=== PATIENT | male | born 1955 | race African-American/Black ===

== ENCOUNTER 2023-08-29 11:36 | Inpatient (IN) | payer MEDICARE, MEDICAID ==
[~2023-08-29] VITALS: Ht 180.3 cm; Wt 83.6 kg
[2023-08-29 12:20] VITALS: PULSE 98; RESP 16; O2SAT 95
[2023-08-29] MEDS: LABETALOL HCL 5 MG/ML 4ML SYRINGE IV ONE ×2 (12:26→15:36)
[2023-08-29] MEDS: SODIUM CHLORIDE 0.9% 1,000 ML IV ONE (13:20)
[2023-08-29 13:37] LABS: Basophils # (auto) 0 10 ^3/uL (0-0.2); Eosinophils # (auto) 0 10 ^3/uL (0-0.8); Eosinophils % (auto) 0.5 % (0.0-7.0); Hemoglobin 14.4 g/dL (13.5-17.5); Monocytes # (auto) 0.4 10 ^3/uL (0-1.3)
[2023-08-29 13:39] LABS: Basophils % (auto) 0.3 % (0.0-2.0); Hematocrit 44.2 % (41.0-53.0); Lymphocytes % (auto) 18.8 % (10.0-50.0); Mean Corpuscular Hemoglobin 26.8 pg (28.0-32.0); Mean Corpuscular Hgb Conc. 32.7 g/dL (32.0-36.0); Mean Corpuscular Volume 82.1 fL (80.0-100.0); Monocytes % (auto) 7.3 % (0.0-12.0); Neutrophils % (auto) 73.1 % (37.0-80.0); Red Blood Cells 5.38 10^6/uL (4.5-5.90); Red Cell Distribution Width 14.2 % (11.8-14.3); White Blood Cell 5.4 10^3/uL (4.4-10.8)
[2023-08-29 13:53] LABS: Chloride 108 mmol/L (98-107); Potassium 3.7 mmol/L (3.5-5.1); Sodium 138 mmol/L (136-145)
[2023-08-29 13:54] LABS: Anion Gap 5 (5-15); Calcium 8.9 mg/dL (8.7-10.4); Carbon Dioxide 25 mmol/L (20-30)
[2023-08-29 13:59] LABS: BUN/Creatinine Ratio 8.7 (10.0-20.0); Blood Urea Nitrogen 9 mg/dL (9-23); Glucose 92 mg/dL (74-106)
[2023-08-29] MEDS: HYDROcodone-ACET 5/325MG TAB PO ONE (16:07)
[2023-08-29] MEDS ORDERED: DOCUSATE SOD 100 MG CAP PO PRN (16:45)
[2023-08-29] MEDS ORDERED: ONDANSETRON HCL 4 MG/2 ML VIAL IV PRN (16:45)
[2023-08-29 16:56] LABS: Urine Epithelial Cast None Seen /hpf (<5)
[2023-08-29] MEDS: hydrALAZINE HCL 20 MG/ML VL IV ONE (17:29)
[2023-08-29 17:40] LABS: Urine Bacteria NONE SEEN /hpf (None Seen); Urine Blood Negative /uL (Negative); Urine Clarity Clear (Clear); Urine Color Yellow (Yellow); Urine Mucus FEW (None Seen); Urine Protein, UAD Negative (Negative); Urine WBC 2 /hpf (0 - 3); Urine pH 5.5 (5.0-8.0)
[2023-08-29] MEDS: ENOXAPARIN SOD 40 MG/0.4 ML SYRINGE SC SCH (18:01)
[2023-08-29] MEDS: hydroCHLOROthiazide 25 MG TAB PO ONE (18:02)
[2023-08-29] MEDS: LISINOPRIL 20 MG TAB PO SCH (18:02)
[2023-08-29] MEDS: SODIUM CHLORIDE 0.9% 1,000 ML IV SCH (18:02)
[2023-08-29 18:45] LABS: Amphetamine Screen, Urine Neg (NEGATIVE)
[2023-08-29 18:46] LABS: Barbiturate Scree,Urine Neg (NEGATIVE); Benzodiazephine Screen, Urine Neg (NEGATIVE); Cannabinoid Screen, Urine Neg (NEGATIVE); Cocaine Screen, Urine Neg (NEGATIVE); Opiate Scree,Urine Neg (NEGATIVE); Phencyclidine Screen, Urine Neg (NEGATIVE)
[2023-08-29 19:30] VITALS: PULSE 103; RESP 16; O2SAT 96
[2023-08-29] MEDS: HYDROcodone-ACET 5/325MG TAB PO PRN (21:00)
[2023-08-29] MEDS: QUEtiapine FUMARATE 100 MG TAB PO ONE (23:55)
[2023-08-30] VITALS (7 sets, daily range): BP systolic 106–178; BP diastolic 75–111; PULSE 87–102; RESP 17–20; TEMP 98–99.4; O2SAT 98–100
[2023-08-30 05:10] LABS: Basophils # (auto) 0 10 ^3/uL (0-0.2); Basophils % (auto) 0.3 % (0.0-2.0); Eosinophils # (auto) 0 10 ^3/uL (0-0.8); Eosinophils % (auto) 0.6 % (0.0-7.0); Hematocrit 38.2 % (41.0-53.0); Hemoglobin 12.5 g/dL (13.5-17.5); Lymphocytes # (auto) 1.8 10 ^3/uL (0.4-5.4); Lymphocytes % (auto) 36.8 % (10.0-50.0); Mean Corpuscular Hemoglobin 26.9 pg (28.0-32.0); Mean Corpuscular Hgb Conc. 32.6 g/dL (32.0-36.0); Mean Corpuscular Volume 82.4 fL (80.0-100.0); Monocytes # (auto) 0.6 10 ^3/uL (0-1.3); Monocytes % (auto) 11.9 % (0.0-12.0); Neutrophils # (auto) 2.5 10 ^3/uL (1.6-8.6); Neutrophils % (auto) 50.4 % (37.0-80.0); Nucleated Red Blood Cells % 0.1 %; Red Blood Cells 4.64 10^6/uL (4.5-5.90); White Blood Cell 4.9 10^3/uL (4.4-10.8)
[2023-08-30 05:26] LABS: Alanine Aminotransferase 13 U/L (7-40); Albumin 3.6 g/dL (3.2-4.8); Alkaline Phosphatase 67 U/L (46-116); Anion Gap 7 (5-15); Aspartate Aminotransferase 42 U/L (13-40); BUN/Creatinine Ratio 9.8 (10.0-20.0); Blood Urea Nitrogen 12 mg/dL (9-23); Calcium 8.6 mg/dL (8.5-10.1); Carbon Dioxide 26 mmol/L (20-30); Chloride 108 mmol/L (98-107); Glucose 96 mg/dL (74-106); Potassium 3.3 mmol/L (3.5-5.1); Sodium 141 mmol/L (136-145)
[2023-08-30 05:27] LABS: Bilirubin, Total 0.5 mg/dL (0.2-1.0); Total Protein 5.9 g/dL (5.7-8.2)
[2023-08-30 07:42] LABS: Magnesium 2.1 mg/dL (1.6-2.6)
[2023-08-30 08:07] LABS: RPR Non Reactive (Non Reactive)
[2023-08-30 08:44] LABS: INR 1.06 (0.9-1.15); Prothrombin Time 11.1 sec (9.3-11.8)
[2023-08-30] MEDS: POTASSIUM EFFERVESENT TAB 25 MEQ PO ONE (09:32)
[2023-08-30] MEDS: hydroCHLOROthiazide 25 MG TAB PO SCH (09:34)
[2023-08-30] MEDS: NEOMYCIN-BACITRACIN-POLYM UNITDOSE PKG TOP OINT TOP SCH (09:37)
[2023-08-30] MEDS: ADENOSINE 72 MG in GIVE UN-DILUTED 0 ML IV ONE (11:56)
[2023-08-30] MEDS: MORPHINE SULFATE INJ 2 MG/ml SYRG IV PRN (13:42)
[2023-08-30] MEDS: hydrALAZINE HCL 20 MG/ML VL IV PRN (16:50)
[2023-08-30] MEDS ORDERED: LORazepam 2MG/ML-1ML VIAL IV PRN (23:15)
[2023-08-30] MEDS ORDERED: QUET25TA37 PO (23:43)
[2023-08-31] VITALS (7 sets, daily range): BP systolic 130–174; BP diastolic 92–115; PULSE 82–100; RESP 14–20; TEMP 98–98.6; O2SAT 93–100
[2023-08-31 05:55] LABS: Basophils # (auto) 0 10 ^3/uL (0-0.2); Basophils % (auto) 0.4 % (0.0-2.0); Eosinophils # (auto) 0.1 10 ^3/uL (0-0.8); Lymphocytes # (auto) 1.9 10 ^3/uL (0.4-5.4); Mean Corpuscular Volume 82.2 fL (80.0-100.0); Monocytes # (auto) 0.6 10 ^3/uL (0-1.3); White Blood Cell 4.5 10^3/uL (4.4-10.8)
[2023-08-31 06:00] LABS: Eosinophils % (auto) 1.5 % (0.0-7.0); Hematocrit 42.2 % (41.0-53.0); Mean Corpuscular Hemoglobin 27.2 pg (28.0-32.0); Mean Corpuscular Hgb Conc. 33.1 g/dL (32.0-36.0); Monocytes % (auto) 12.5 % (0.0-12.0); Neutrophils # (auto) 1.9 10 ^3/uL (1.6-8.6); Neutrophils % (auto) 43.6 % (37.0-80.0); Nucleated Red Blood Cells % 0.4 %; Red Blood Cells 5.14 10^6/uL (4.5-5.90); Red Cell Distribution Width 14.2 % (11.8-14.3)
[2023-08-31 06:04] LABS: Anion Gap 6 (5-15); Carbon Dioxide 27 mmol/L (20-30); Chloride 105 mmol/L (98-107); Potassium 3.8 mmol/L (3.5-5.1); Sodium 138 mmol/L (136-145)
[2023-08-31 06:05] LABS: Calcium 9.2 mg/dL (8.5-10.1)
[2023-08-31 06:10] LABS: BUN/Creatinine Ratio 7.6 (10.0-20.0); Blood Urea Nitrogen 8 mg/dL (9-23); Glucose 91 mg/dL (74-106)
[2023-08-31] MEDS: NIFEdipine ER 30 MG TAB PO SCH (09:35)
[2023-09-01] VITALS (7 sets, daily range): BP systolic 145–160; BP diastolic 81–110; PULSE 90–125; RESP 16–20; TEMP 98.3–98.9; O2SAT 94–100
[2023-09-02 05:00] VITALS: BP 122/77; PULSE 98; RESP 19; TEMP 98.1; O2SAT 96
[2023-09-02 08:00] VITALS: PULSE 90
[2023-09-02 09:00] VITALS: BP 123/87; PULSE 93; RESP 20; TEMP 98.5; O2SAT 97
[2023-09-02 13:00] VITALS: BP 139/88; PULSE 75; RESP 20; TEMP 98.4; O2SAT 97
[2023-09-02 20:00] VITALS: PULSE 105; RESP 20; O2SAT 95
[2023-09-02 22:00] VITALS: BP 110/75; PULSE 84; RESP 20; TEMP 98.3; O2SAT 99
[2023-09-03] VITALS (14 sets, daily range): BP systolic 104–133; BP diastolic 74–98; PULSE 77–97; RESP 12–20; TEMP 97.9–98.8; O2SAT 93–100
[2023-09-03 05:27] LABS: Basophils # (auto) 0 10 ^3/uL (0-0.2); Basophils % (auto) 0.4 % (0.0-2.0); Eosinophils # (auto) 0 10 ^3/uL (0-0.8); Eosinophils % (auto) 1.1 % (0.0-7.0); Hematocrit 42.9 % (41.0-53.0); Lymphocytes # (auto) 1.6 10 ^3/uL (0.4-5.4); Lymphocytes % (auto) 46.5 % (10.0-50.0); Mean Corpuscular Hemoglobin 27.1 pg (28.0-32.0); Mean Corpuscular Hgb Conc. 32.7 g/dL (32.0-36.0); Monocytes # (auto) 0.6 10 ^3/uL (0-1.3); Monocytes % (auto) 16.5 % (0.0-12.0); Neutrophils # (auto) 1.2 10 ^3/uL (1.6-8.6); Neutrophils % (auto) 35.5 % (37.0-80.0); Red Blood Cells 5.17 10^6/uL (4.5-5.90); White Blood Cell 3.5 10^3/uL (4.4-10.8)
[2023-09-03 05:40] LABS: Alanine Aminotransferase 14 U/L (7-40); Alkaline Phosphatase 73 U/L (46-116); Anion Gap 4 (5-15); Aspartate Aminotransferase 20 U/L (13-40); Blood Urea Nitrogen 18 mg/dL (9-23); Calcium 8.9 mg/dL (8.7-10.4); Carbon Dioxide 29 mmol/L (20-30); Chloride 104 mmol/L (98-107); Glucose 96 mg/dL (74-106); Potassium 3.9 mmol/L (3.5-5.1); Sodium 137 mmol/L (136-145); Total Protein 6.6 g/dL (5.7-8.2)
[2023-09-03 05:57] LABS: Bilirubin, Total 0.6 mg/dL (0.2-1.0)
[2023-09-03 07:06] LABS: INR 1.04 (0.9-1.15); Partial Thromboplastin Time 28.8 SEC (24.5-34.5); Prothrombin Time 10.9 sec (9.3-11.8)
[2023-09-03] MEDS: IODIXANOL 320MG/ML 100ML BTL IV ONE (15:03)
[2023-09-03] MEDS: LIDOCAINE 2%HCL (LOCAL ANESTH.) INJ 20ML MDV ONE (15:05)
[2023-09-03] MEDS: fentaNYL CITRATE 100 MCG/2 ML VL ONE (15:10)
[2023-09-03] MEDS: VERAPAMIL 2.5MG/ML INJ 2ML VIAL IV ONE (15:10)
[2023-09-03] MEDS: MIDAZOLAM HCL 2MG/2ML 2ml VIAL (1mg/ml) ONE (15:10)
[2023-09-03] MEDS: ANGIOMAX 250 MG VIAL IV ONE (15:11)
[2023-09-03] MEDS: SODIUM CHL 0.9% 0 ML ONE (15:11)
[2023-09-03] MEDS: HEPARIN SODIUM (PORCINE) 5000 UNITS/ML 1ML VIAL ONE (15:11)
[2023-09-04] VITALS (7 sets, daily range): BP systolic 112–150; BP diastolic 70–100; PULSE 85–108; RESP 18–20; TEMP 98.1–98.9; O2SAT 96–99
[2023-09-04] MEDS ORDERED: NIFE1TAB31 PO (12:37)
[2023-09-04] MEDS ORDERED: HYDR25TA5 PO (12:37)
== END 2023-09-04 18:45 | disposition home or self-care (01) | DRG 287 ==
LOC: EDBD 11:36 → ER 11:36 → TELE 16:55 → TELE-WESTW 23:32
PROVIDERS: ADMIT Nurse Practitioner Family; ATTEND Internal Medicine
PROC: 4A023N7 Measurement of Cardiac Sampling and Pressure, Left Heart, Percutaneous Approach (ICD-10-PCS; principal; 2023-09-03)
PROC: B211YZZ Fluoroscopy of Multiple Coronary Arteries using Other Contrast (ICD-10-PCS; 2023-09-03)
PROC: B215YZZ Fluoroscopy of Left Heart using Other Contrast (ICD-10-PCS; 2023-09-03)
DX: I16.1 Hypertensive emergency (principal); R55 Syncope and collapse; S16.1XXA Strain of muscle, fascia and tendon at neck level, initial encounter; S46.911A Strain of unspecified muscle, fascia and tendon at shoulder and upper arm level, right arm, initial encounter; S46.912A Strain of unspecified muscle, fascia and tendon at shoulder and upper arm level, left arm, initial encounter; S01.81XA Laceration without foreign body of other part of head, initial encounter; E87.6 Hypokalemia; E78.5 Hyperlipidemia, unspecified; F17.210 Nicotine dependence, cigarettes, uncomplicated; I10 Essential (primary) hypertension; I73.9 Peripheral vascular disease, unspecified; M25.531 Pain in right wrist; F17.290 Nicotine dependence, other tobacco product, uncomplicated; M79.631 Pain in right forearm; W18.30XA Fall on same level, unspecified, initial encounter; S02.2XXA Fracture of nasal bones, initial encounter for closed fracture; I89.0 Lymphedema, not elsewhere classified; Z79.899 Other long term (current) drug therapy; Z89.511 Acquired absence of right leg below knee; Z89.512 Acquired absence of left leg below knee; Z71.6 Tobacco abuse counseling; Y93.89 Activity, other specified; Y92.89 Other specified places as the place of occurrence of the external cause; Y99.8 Other external cause status
CPT/HCPCS: 36415; 70450; 70486; 71045; 72040; 73030; 73090; 73110; 73130; 78452; 80048; 80053; 80061; 80307; 81001; 83735; 84443; 84484; 85025; 85610; 85730; 86592; 86850; 86900; 86901; 93005; 93017; 93306; 93458; 93886; 95819; 96374; 96376; 99152; 99291; G0378; J0153; J2250; J3490; Q9967

== ENCOUNTER → 2023-09-14 | Outpatient (CLI) | payer MEDICARE, MEDICAID ==
[~2023-09-14] MED LIST: HYDR25TA5 PO; NIFE1TAB31 PO; QUET25TA37 PO
[2023-09-14 10:34] LABS: Basophils # (auto) 0 10 ^3/uL (0-0.2); Basophils % (auto) 0.3 % (0.0-2.0); Hemoglobin 13.8 g/dL (13.5-17.5); Neutrophils # (auto) 2.2 10 ^3/uL (1.6-8.6)
[2023-09-14 10:37] LABS: Eosinophils # (auto) 0 10 ^3/uL (0-0.8); Hematocrit 42.1 % (41.0-53.0); Lymphocytes # (auto) 1.8 10 ^3/uL (0.4-5.4); Lymphocytes % (auto) 40.7 % (10.0-50.0); Mean Corpuscular Hemoglobin 27.2 pg (28.0-32.0); Mean Corpuscular Hgb Conc. 32.8 g/dL (32.0-36.0); Mean Corpuscular Volume 82.8 fL (80.0-100.0); Monocytes # (auto) 0.4 10 ^3/uL (0-1.3); Monocytes % (auto) 9.3 % (0.0-12.0); Neutrophils % (auto) 48.7 % (37.0-80.0); Nucleated Red Blood Cells % 0.2 %; Red Blood Cells 5.09 10^6/uL (4.5-5.90); Red Cell Distribution Width 13.4 % (11.8-14.3); White Blood Cell 4.5 10^3/uL (4.4-10.8)
[2023-09-14 11:01] LABS: Alanine Aminotransferase 17 U/L (7-40); Albumin 4.2 g/dL (3.2-4.8); Alkaline Phosphatase 89 U/L (46-116); Anion Gap 7 (5-15); Aspartate Aminotransferase 22 U/L (13-40); BUN/Creatinine Ratio 10.6 (10.0-20.0); Blood Urea Nitrogen 11 mg/dL (9-23); Calcium 9.3 mg/dL (8.5-10.1); Carbon Dioxide 26 mmol/L (20-30); Chloride 108 mmol/L (98-107); Glucose 94 mg/dL (74-106); Potassium 3.5 mmol/L (3.5-5.1); Prostate Specific Antigen 0.39 ng/mL (0.0-4.0); Sodium 141 mmol/L (136-145); Triglycerides 91 mg/dL (< 150)
[2023-09-14 11:02] LABS: Cholesterol 146 mg/dL (< 200); LDL Cholesterol 94 mg/dL (< 100)
[2023-09-14 11:03] LABS: Bilirubin, Total 0.7 mg/dL (0.2-1.0); HDL Cholesterol 36 mg/dL (40-59); Total Protein 7.1 g/dL (5.7-8.2)
[2023-09-14 11:07] LABS: Free T4 (Free Thyroxine) 0.95 ng/dL (0.89-1.76)
== END | disposition home or self-care (01) ==
LOC: LAB 09:55
PROVIDERS: ATTEND Nurse Practitioner Family
DX: I10 Essential (primary) hypertension (principal); R35.1 Nocturia; F20.9 Schizophrenia, unspecified
CPT/HCPCS: 36415; 80053; 80061; 84153; 84439; 84443; 85025

== ENCOUNTER → 2024-11-03 | Outpatient (CLI) | payer MEDICAID ==
[2024-11-03 12:14] LABS: Basophils # (auto) 0 10 ^3/uL (0-0.2); Eosinophils # (auto) 0.1 10 ^3/uL (0-0.8); Eosinophils % (auto) 2.2 % (0.0-7.0); Mean Corpuscular Hemoglobin 26.8 pg (28.0-32.0); Monocytes # (auto) 0.4 10 ^3/uL (0-1.3); Neutrophils # (auto) 1.4 10 ^3/uL (1.6-8.6); Nucleated Red Blood Cells % 0.1 %
[2024-11-03 12:16] LABS: Hematocrit 43.7 % (41.0-53.0); Hemoglobin 14.1 g/dL (13.5-17.5); Lymphocytes # (auto) 2.1 10 ^3/uL (0.4-5.4); Lymphocytes % (auto) 52.1 % (10.0-50.0); Mean Corpuscular Hgb Conc. 32.4 g/dL (32.0-36.0); Mean Corpuscular Volume 82.6 fL (80.0-100.0); Monocytes % (auto) 10.1 % (0.0-12.0); Neutrophils % (auto) 34.6 % (37.0-80.0); Platelet Count (auto) 207 10^3/uL (140-450); Red Blood Cells 5.28 10^6/uL (4.5-5.90); Red Cell Distribution Width 14.4 % (11.8-14.3)
[2024-11-03 12:40] LABS: Alanine Aminotransferase 14 U/L (7-40); Albumin 4.2 g/dL (3.2-4.8); Alkaline Phosphatase 87 U/L (46-116); Anion Gap 6 (5-15); Aspartate Aminotransferase 20 U/L (13-40); BUN/Creatinine Ratio 10.3 (10.0-20.0); Bilirubin, Total 0.7 mg/dL (0.2-1.0); Blood Urea Nitrogen 11 mg/dL (9-23); Calcium 9.5 mg/dL (8.7-10.4); Carbon Dioxide 29 mmol/L (20-31); Chloride 106 mmol/L (98-107); Cholesterol 156 mg/dL (< 200); Glucose 91 mg/dL (74-106); HDL Cholesterol 41 mg/dL (40-59); LDL Cholesterol 96 mg/dL (< 100); Potassium 3.7 mmol/L (3.5-5.1); Sodium 141 mmol/L (136-145); Triglycerides 103 mg/dL (< 150)
== END | disposition home or self-care (01) ==
LOC: LAB 11:53
PROVIDERS: ATTEND Nurse Practitioner Family
DX: I10 Essential (primary) hypertension (principal); R35.1 Nocturia; Z00.01 Encounter for general adult medical examination with abnormal findings
CPT/HCPCS: 36415; 80053; 80061; 84153; 84443; 85025